=== PATIENT | female | born 1980 | race Caucasian/White ===

== ENCOUNTER 2020-03-28 14:45 | Observation (INO) | payer MEDICAID, SELFPAY ==
[2020-03-28 14:46] VITALS: BP 147/73; PULSE 128; RESP 17; TEMP 35.9; O2SAT 98; BMI 23.6
--- NOTE | 2020-03-28 16:05 | EKG12_ITS ---
Test Reason : Blood Pressure : / mmHG Vent. Rate : 108 BPM Atrial Rate : 108 BPM P-R Int : 144 ms QRS Dur : 092 ms QT Int : 334 ms P-R-T Axes : 025 025 017 degrees QTc Int : 447 ms Sinus tachycardia Otherwise normal ECG Confirmed by MICAELA THOMASON, NAVID ([id number]), industrial editor MARILEE REGALADO ([id number]) on 04/05/2020 11:11:00 A M Referred By: ADRIANA Confirmed By:TJ HINOJOSA MD
--- NOTE | 2020-03-28 16:10 | NURSING ---
NO OLD EKGS
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
--- NOTE | 2020-03-28 17:05 | RAD_ITS ---
STUDY: X-RAY CHEST REASON FOR EXAM: Female, 39 years old. Tachycardia. TECHNIQUE: Single AP portable view of the chest. COMPARISON: None. FINDINGS: There is linear atelectasis at the right lung base. Lungs are otherwise clear. There is no demonstrated pleural abnormality. Normal size heart. Normal mediastinum and surendra. Normal visualized pulmonary arteries. Normal visualized aortic arch and descending thoracic aorta. Normal visualized thoracic spine. Normal visualized ribs, clavicles, and shoulders. There is no demonstrated abnormality of the visualized soft tissue structures of the upper abdomen. RAD/Chest 1 View (Portable) IMPRESSION: Right basilar atelectasis. Electronically Signed: Jerod Boss DO at 17:34 EDT Tel [phone], Service support ,
--- NOTE | 2020-03-28 17:10 | HP.PCM_ITS ---
Problem List (1) Acute opioid withdrawal Status: Acute (2) History of MRSA bacteremia Status: Chronic (3) Herpes zoster virus infection of face and ear nerves Status: Acute (4) Tobacco abuse Status: Chronic (5) Heroin abuse Status: Chronic History of Present Illness Date of Admission: 03/28/20 Chief Complaint: Patient requested admission for acute opioid withdrawal for medical stabilization. The patient is a 39 year old F with past medical history as mentioned above presented to the emergency room requesting admission for acute opioid withdrawal for medical stabilization. Patient has been using heroin both snorting and IV over the last 4 years intermittently. Over the last 2 months, she has been using her 1 almost every day, around half a gram every day and her last use was yesterday. She is admitted using occasional methamphetamines. Her mother was at the bedside that she mentioned that patient has been taking Subutex trying to take herself off the heroin. She has been getting Subutex from the street as well. Her presenting symptoms are generalized body aches and pains that has been going on for last couple of days, associated with anxiety and insomnia and without aggravating or relieving factors. She denied abdominal pain, nausea or vomiting. She denied diarrhea. She denied fever or chills. She denied chest pain or shortness of breath. Patient mentioned that she was admitted to [facility] on August, and she remained in the hospital until November,. Apparently, she was found to have MRSA bacteremia, underwent pericardial window and lung surgery which seemed to be for empyema. At this time, I have no documents for her stay in [facility] beginning of this year. 3 weeks ago, she was diagnosed with shingles of the face, was on valacyclovir which was completed today and she has been on antibiotic eyedrops. She has been following up with [facility] weekly since then. In the emergency department, she was afebrile, tachycardic, blood pressure was stable, pulse ox was 98% on room air. Routine blood work was remarkable for hemoglobin of 11.5, sodium of 133, otherwise normal. LFT revealed slightly elevated liver transaminases and alkaline phosphatase. Troponin was negative. Serum venous test was negative. Urinalysis revealed cloudy urine, positive for leukocyte esterase, there was 10- 25 WBCs and 1+ bacteria. Urine drug screen was positive for benzodiazepines, blood alcohol level was 5. She is being admitted for acute opiate withdrawal for medical stabilization and also found to have acute cystitis. Past Medical History Past Medical History (Chronic Problems): Chronic Problems History of MRSA bacteremia (Chronic) Tobacco abuse (Chronic) Heroin abuse (Chronic) Allergies buspirone [From BuSpar] Allergy (Verified 03/28/20 14:46) Angioedema Home Medications: Ambulatory Orders Medication Instructions Recorded Atb Eye Drops 03/28/20 Erythromycin Ophthalmic [(None)] 1 applic LEFT EYE DAILY 03/28/20 Lorazepam [Ativan] 0.5 mg PO BID PRN PRN 03/28/20 Sertraline HCl [Zoloft] 50 mg PO DAILY 03/28/20 Shingles Med 03/28/20 Surgical History: - - Pericardial window, lung surgery. 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 - *Family History Maternal History Items: No pertinent history Paternal History Items: No pertinent history Review of Systems Constitutional: Reports: Anorexia. Denies: Chills, Fever, Weakness Eyes: Denies: Blurred vision, Double vision, Drainage, Redness HEENT: Denies: Difficulty Hearing, Ear Pain, Eye Pain, Nasal Congestion, Sore Throat Cardiovascular: Denies: Chest Pain, Chest Pressure, Heaviness, Light Headedness, Palpitations, Syncope Respiratory: Reports: Shortness of Breath. Denies: Cough, Hemoptysis, Pleuritic Pain, Sputum production, Wheezing Gastrointestinal: Denies: Abdominal Pain, Constipation, Diarrhea, Nausea, Vomiting Genitourinary: Denies: Dysuria, Frequency, Hematuria Musculoskeletal: Denies: Arm Pain, Back Pain, Foot Pain Skin: Denies: Dryness, Rash Neurological: Denies: Balance problems, Blurred vision, Double vision, Change in Speech, Slurred speech, Confusion, Focal weakness, Incoordination, Numbness Psychiatric: Reports: Anxiety, Depression Endocrine: Denies: Change in Body Habitus, Polydipsia, Polyuria VTE Information - Inpt Only VTE Present on Admission: No VTE Mechan Device Prophylaxis: None VTE Pharm Prophylaxis ordered?: No Patient Problems: Active and Suspected Problems Acute opioid withdrawal (Acute) Herpes zoster virus infection of face and ear nerves (Acute) - Physical Exam Vitals/I&O's: Vital Signs Temp Pulse Resp BP Pulse Ox 96.6 F L 128 H 17 147/73 H 98 03/28/20 14:46 03/28/20 14:46 03/28/20 14:46 03/28/20 14:46 03/28/20 14:46 Oxygen Delivery Method Room Air Weight: 142 lb 3.17 oz Body Mass Index (BMI) 23.6 General: Alert, Oriented x3, Cooperative, No apparent distress HEENT: Atraumatic, PERRLA, EOMI, Normocephalic Oral: Moist Mucosa, No Gingival or Mucosal Lesions/ Ulcerations Neck: Supple, No JVD, Trachea Midline, Thyroid Normal Size and Texture Lungs: Clear to auscultation, No rhonchi, No wheeze, No rales Cardiovascular: Regular rate, Regular Rhythm, Normal S1, Normal S2, PMI Normal, Tachycardic Abdomen: Bowel Sounds Present, Soft, Non Tender, Non-Distended, No Hepato- splenomegaly, Obese Extremities: No clubbing, No cyanosis, No edema Skin: No breakdown, - - Left facial rash, healing vesicles. Lymphatic: No Cervical, Supraclavicular, or Inguinal Adenopathy Neurological: Cranial nerves II-XII grossly intact, Motor Exam 5/5 strength throughout Psych/Mental Status: Normal Affect, Appropriate, Anxious Laboratory Results 03/28/20 16:43: Serum , Qual Pending Laboratory Tests 03/28/20 03/28/20 03/28/20 Range/Units 16:43 16:43 16:43 WBC (4.4-11.0) K/mm3 RBC (4.2-5.4) M/mm3 Hgb (12.0-15.0) g/dL Hct (37-47) % MCV (81-99) fL MCH (27.0-32.0) pg MCHC (32-36) g/dL RDW Std Deviation (35.1-43.9) fl RDW Coeff of Parveen (11.6-14.6) % Plt Count (150-450) K/mm3 MPV (6.2-12.0) fl Immature Gran % (Auto) (0.0-0.9) % Neut % (Auto) (47-70) % Lymph % (Auto) (19-41) % Storey % (Auto) (0-10) % Eos % (Auto) (0-5) % Baso % (Auto) (0-1) % Absolute Neuts (auto) (2.0-7.7) X10^3/uL Absolute Lymphs (auto) (0.83-4.51) X10^3/uL Nucleated RBC % (0-5) % Sodium (136-145) mmol/L Potassium (3.5-5.1) mmol/L Chloride (98-107) mmol/L Carbon Dioxide (21.0-32.0) mmol/L Anion Gap (5-15) BUN (7-18) mg/dL Creatinine (0.55-1.02) mg/dL Estim Creat Clear Calc ml/min Est GFR (MDRD) Af Amer (>60) mL/min Est GFR (MDRD) Non-Af (>60) mL/min BUN/Creatinine Ratio (10-20) RATIO Glucose (74-106) mg/dL Calcium (8.5-10.1) mg/dL Total Bilirubin (0.20-1.00) mg/dL AST (15-37) U/L ALT (13-56) U/L Alkaline Phosphatase (45-117) U/L Troponin I (<0.045) ng/mL Total Protein (6.4-8.2) g/dL Albumin (3.2-5.0) g/dL Globulin (2.2-4.2) g/dL Albumin/Globulin Ratio (0.9-2.4) RATIO Serum , Qual NEGATIVE Negative Urine Color Yellow (Yellow) Urine Clarity Sl Cldy (Clear) Urine pH 5.0 (5.0 - 8.0) Ur Specific Milner 1.015 (1.002-1.030) Urine Protein 15 H (Negative) mg/dl Urine Glucose (UA) Normal (Normal) mg/dl Urine Ketones 5 H (Negative) mg/dl Urine Occult Blood Negative (Negative) /ul Urine Nitrite Negative (Negative) Urine Bilirubin 1 H (Negative) mg/dL Urine Urobilinogen 1 H (Normal) mg/dl Ur Leukocyte Esterase 500 H (Negative) /ul Urine RBC 0 SEEN (0-5) /hpf Urine WBC 10-25 SEEN (0-5) /hpf Ur Squamous Epith Cells 0-5 SEEN (5-10) /hpf Urine Bacteria 1+ (None Seen) /hpf Urine Mucus 0 SEEN (<or=2+) /hpf Urine Opiates Screen NEGATIVE (< 300 ng/mL) Urine Methadone Screen NEGATIVE (< 300 ng/mL) Ur Barbiturates Screen NEGATIVE (< 200 ng/mL) Ur Phencyclidine Scrn NEGATIVE (< 25 ng/mL) Ur Amphetamines Screen NEGATIVE (<1000 ng/mL) U Methamphetamin-MDMA NEGATIVE (< 500 ng/mL) U Benzodiazepines Scrn POSITIVE H (< 200 ng/mL) Urine Cocaine Screen NEGATIVE (< 300 ng/mL) U Cannabinoids Screen NEGATIVE (< 50 ng/mL) Ur Drug Screen Comment Ethyl Alcohol mg/dL 03/28/20 03/28/20 03/28/20 Range/Units 16:43 16:43 16:43 WBC 8.3 (4.4-11.0) K/mm3 RBC 4.62 (4.2-5.4) M/mm3 Hgb 11.5 L (12.0-15.0) g/dL Hct 37.6 (37-47) % MCV 81.4 (81-99) fL MCH 24.9 L (27.0-32.0) pg MCHC 30.6 L (32-36) g/dL RDW Std Deviation 53.6 H (35.1-43.9) fl RDW Coeff of Parveen 19.8 H (11.6-14.6) % Plt Count 240 (150-450) K/mm3 MPV 9.7 (6.2-12.0) fl Immature Gran % (Auto) 0.500 (0.0-0.9) % Neut % (Auto) 88.3 H (47-70) % Lymph % (Auto) 7.1 L (19-41) % Storey % (Auto) 3.3 (0-10) % Eos % (Auto) 0.4 (0-5) % Baso % (Auto) 0.4 (0-1) % Absolute Neuts (auto) 7.3 (2.0-7.7) X10^3/uL Absolute Lymphs (auto) 0.59 L (0.83-4.51) X10^3/uL Nucleated RBC % 0 (0-5) % Sodium 133 L (136-145) mmol/L Potassium 4.0 (3.5-5.1) mmol/L Chloride 102 (98-107) mmol/L Carbon Dioxide 27.0 (21.0-32.0) mmol/L Anion Gap 4 L (5-15) BUN 16 (7-18) mg/dL Creatinine 0.75 (0.55-1.02) mg/dL Estim Creat Clear Calc 89.72 ml/min Est GFR (MDRD) Af Amer 110 (>60) mL/min Est GFR (MDRD) Non-Af 91 (>60) mL/min BUN/Creatinine Ratio 21.4 H (10-20) RATIO Glucose 116 H (74-106) mg/dL Calcium 8.4 L (8.5-10.1) mg/dL Total Bilirubin 0.50 (0.20-1.00) mg/dL AST 47 H (15-37) U/L ALT 74 H (13-56) U/L Alkaline Phosphatase 190 H (45-117) U/L Troponin I < 0.015 (<0.045) ng/mL Total Protein 7.2 (6.4-8.2) g/dL Albumin 3.3 (3.2-5.0) g/dL Globulin 3.9 (2.2-4.2) g/dL Albumin/Globulin Ratio 0.8 L (0.9-2.4) RATIO Serum , Qual Negative Urine Color (Yellow) Urine Clarity (Clear) Urine pH (5.0 - 8.0) Ur Specific Milner (1.002-1.030) Urine Protein (Negative) mg/dl Urine Glucose (UA) (Normal) mg/dl Urine Ketones (Negative) mg/dl Urine Occult Blood (Negative) /ul Urine Nitrite (Negative) Urine Bilirubin (Negative) mg/dL Urine Urobilinogen (Normal) mg/dl Ur Leukocyte Esterase (Negative) /ul Urine RBC (0-5) /hpf Urine WBC (0-5) /hpf Ur Squamous Epith Cells (5-10) /hpf Urine Bacteria (None Seen) /hpf Urine Mucus (<or=2+) /hpf Urine Opiates Screen (< 300 ng/mL) Urine Methadone Screen (< 300 ng/mL) Ur Barbiturates Screen (< 200 ng/mL) Ur Phencyclidine Scrn (< 25 ng/mL) Ur Amphetamines Screen (<1000 ng/mL) U Methamphetamin-MDMA (< 500 ng/mL) U Benzodiazepines Scrn (< 200 ng/mL) Urine Cocaine Screen (< 300 ng/mL) U Cannabinoids Screen (< 50 ng/mL) Ur Drug Screen Comment Ethyl Alcohol 5.0 mg/dL Assessment/Plan All Active Problems Acute opioid withdrawal (Acute) Herpes zoster virus infection of face and ear nerves (Acute) This is a 39 years old female patient presented to the emergency room requesting admission for acute opiate withdrawal for medical stabilization. #1 acute opiate withdrawal: Patient has been snorting and injecting heroin IV as well as intermittent amphetamines. She has been trying to take Subutex from the street to help her get off the heroin. Plan: Admit to [facility] floor, telemetry, initiate opioid withdrawal protocol, tapering Subutex, PRN Catapres, Bentyl, Neurontin, Vistaril, Imodium, methocarbamol, Zofran and trazodone, consult 180 program. #2 Elevated LFT: Unclear etiology, could be related to her recent illness with MRSA bacteremia. She denied any right upper quadrant abdominal pain. Plan to monitor. #3 recent history of facial shingles: Completed 3 weeks of valacyclovir. Currently, she is on antibiotic eyedrops. Continue wound medications updated. #4 recent history of MRSA bacteremia: No documents available. Patient mentioned she had pericardial window and she went for lung surgery for cleaning her lungs. Probably she had empyema. Will obtain records from [facility]. #5 anxiety and depression: Continue Ativan and Zoloft. #6 tobacco abuse: NicoDerm patch. #7 DVT prophylaxis: Low risk patient, no prophylaxis indicated, ambulate. This note was generated with [employer] dictation software. It may contain incorrect words, spelling, and punctuation that were not noted in checking the note before signing. Inpatient E&M: 28535 Init Hosp L2
[2020-03-28 17:11] LABS: Mucous, Urine 0 SEEN /hpf (<or=2+); Red Blood Cells-Urine 0 SEEN /hpf (0-5)
[2020-03-28 17:15] LABS: Glucose, Dipstick Normal (Normal); Ketone-Dipstick 5 mg/dl (Negative); Leukocyte Esterase-Dipstick 500 /ul (Negative); Nitrite-Dipstick Negative (Negative); Occult Blood-Urine Negative /ul (Negative); Protein-Dipstick 15 mg/dl (Negative); Specific Gravity, Urine 1.015 (1.002-1.030); Urine Urobilinogen 1 mg/dl (Normal)
[2020-03-28 17:19] LABS: Color, Urine Yellow (Yellow); Urine Bilirubin Dipstick 1 mg/dL (Negative); Urine Clarity Sl Cldy (Clear)
[2020-03-28 17:20] LABS: Absolute Lymphocyte Count 0.59 X10^3/uL (0.83-4.51); Absolute Neutrophil Count 7.3 X10^3/uL (2.0-7.7); Basophil# 0.03 X10^3/uL; Basophil% 0.4 % (0-1); Eosinophil# 0.03 X10^3/uL; Eosinophils% 0.4 % (0-5); Hematocrit 37.6 % (37-47); Hemoglobin 11.5 g/dL (12.0-15.0); Lymphocyte # 0.59 X10^3/ul (4.0); Lymphocyte % 7.1 % (19-41); Mean Corp Hgb Conc 30.6 g/dL (32-36); Mean Corpuscular Hgb 24.9 pg (27.0-32.0); Mean Corpuscular Volume 81.4 fL (81-99); Mean Platelet Vol. 9.7 fl (6.2-12.0); Monocyte# 0.27 X10^3/uL; Monocyte% 3.3 % (0-10); NRBC Flagged by Analyzer 0 % (0-5); Neutrophil # 7.33 X10^3/uL (2.7-7.7); Neutrophil % 88.3 % (47-70); POSITIVE DIFFERENTIAL YES; Platelet Count 240 K/mm3 (150-450); RBC Distribution Width CV 19.8 % (11.6-14.6); RBC Distribution Width SD 53.6 fl (35.1-43.9); Red Blood Count 4.62 M/mm3 (4.2-5.4); White Blood Count 8.3 K/mm3 (4.4-11.0)
[2020-03-28 17:26] LABS: Differential Indicated SCAN CRITERIA MET
[2020-03-28 17:35] LABS: ALB/GLOB Ratio 0.8 RATIO (0.9-2.4); AST(SGOT) 47 U/L (15-37); Alanine Aminotransfer ALT/SGPT 74 U/L (13-56); Albumin, Serum 3.3 g/dL (3.2-5.0); Alkaline Phosphatase 190 U/L (45-117); Anion Gap 4 (5-15); BUN 16 mg/dL (7-18); BUN/Creat Ratio 21.4 RATIO (10-20); Calcium,Total 8.4 mg/dL (8.5-10.1); Chloride 102 mmol/L (98-107); Creatinine, Serum 0.75 mg/dL (0.55-1.02); EST Glomerular Filtration Rate 91 mL/min (>60); Est Glom Filt Rate - Afr Amer 110 mL/min (>60); Estimated Creatinine Clearance 89.72 ml/min; Globulin 3.9 g/dL (2.2-4.2); Glucose 116 mg/dL (74-106); Protein, Total 7.2 g/dL (6.4-8.2); Sodium Level 133 mmol/L (136-145)
[2020-03-28 17:46] LABS: Amphetamine Urine VISTA NEGATIVE (<1000 ng/mL); Barbiturate Urine VISTA NEGATIVE (< 200 ng/mL); Benzodiazepine Urine VISTA POSITIVE (< 200 ng/mL); Cocaine Urine VISTA NEGATIVE (< 300 ng/mL); Ecstacy Urine VISTA NEGATIVE (< 500 ng/mL); Methadone Urine VISTA NEGATIVE (< 300 ng/mL); PCP Urine VISTA NEGATIVE (< 25 ng/mL); THC Urine VISTA NEGATIVE (< 50 ng/mL); Vista UDS pH Range 6
[2020-03-28 17:50] LABS: Internal QC Validated? YES +Cl - CLEAR BKGD; Pregnancy, Serum, hCG Quali. NEGATIVE Negative
[2020-03-28 17:55] LABS: Bacteria 1+ /hpf (None Seen); Squamous Epithelial Cells - UA 0-5 SEEN /hpf (5-10); White Blood Cells 10-25 SEEN /hpf (0-5)
[2020-03-28 18:07] LABS: Differential Comment SCANNED
--- NOTE | 2020-03-28 18:13 | NURSING ---
MED SURG ACUTE OPIOID WITHDRAWAL FRANK
--- NOTE | 2020-03-28 18:38 | ED.RN ---
THIS NURSE SPOKE WITH THE CHARGE NURSE ON [facility]. INFORMED THAT WE DO NOT HAVE THE ATB AND ARE ASKING THE PHARMACY TO SEND THE ATB TO [facility] FOR ADMINISTRATION. [facility] CHARGE AGREED TO SAME
[2020-03-28 18:41] VITALS: BP 138/77; PULSE 110; RESP 16; TEMP 36.7; O2SAT 98
[2020-03-28 18:46] VITALS: BMI 23.4
[2020-03-28 19:04] VITALS: BP 110/72; PULSE 104; RESP 18; TEMP 36.5; O2SAT 93
[2020-03-28 19:46] VITALS: BMI 23.4
[2020-03-28 20:00] VITALS: PULSE 91
[2020-03-28] MEDS: hydrOXYzine PAM 25 MG Capsule 50 MG PO (20:07)
[2020-03-28] MEDS: Ceftriaxone 1 GM/50 ML BAG IV (20:07)
[2020-03-28] MEDS: 0.9% Saline Lock 10 ML Syringe IV (20:08)
[2020-03-28] MEDS: Buprenorphine HCl 2 MG TAB.SUBL SL (20:09)
[2020-03-28] MEDS: Methocarbamol 750 MG Tablet 1500 MG PO (20:18)
[2020-03-28] MEDS: Ensure Clear 120 ML Liquid PO (22:18)
[2020-03-28 23:16] VITALS: BP 93/60; PULSE 76; RESP 18; TEMP 36.4; O2SAT 99
[2020-03-28] MEDS: LORazepam 0.5 MG Tablet PO (23:27)
[2020-03-28] MEDS: traZODone 100 MG Tablet PO (23:27)
[2020-03-29] VITALS (12 sets, daily range): BP systolic 92–101; BP diastolic 60–70; PULSE 74–98; RESP 16–18; TEMP 36.6–36.9; O2SAT 95–98
[2020-03-29] MEDS: Methocarbamol 750 MG Tablet 1500 MG PO ×3 (04:18→18:36)
[2020-03-29] MEDS: Gabapentin 300 MG Capsule PO ×2 (04:19→16:12)
[2020-03-29] MEDS: Buprenorphine HCl 2 MG TAB.SUBL SL ×3 (04:19→20:22)
[2020-03-29] MEDS: Acetaminophen 500 MG Tablet PO ×2 (04:19→16:17)
[2020-03-29] MEDS: Sertraline 50 MG Tablet PO (08:28)
[2020-03-29] MEDS: LORazepam 0.5 MG Tablet PO ×2 (08:29→22:09)
--- NOTE | 2020-03-29 10:12 | ADDICTION ---
This rewriter met with patient, in her room, to conduct MSE, ASAM, DUDIT assessments and discharge planning. Patient was alert and oriented x4 and presented with depressed mood and flat affect. She appeared to be honest throughout assessment and offered valuable insight to this rewriter about her use history and addiction. She appears appropriate for the 4.0 LOC at this time. She is scheduled for a follow-up appointment with Jw on 04/01/2020 at 12 pm at the [place] office and also 04/10/2020 at 9am at the [place] office where she will engage in individual counseling, IOP and MAT. She states that she is amiable to this plan and is motivated to be an active participant in her recovery. This rewriter will fax all completed assessments to [facility].
--- NOTE | 2020-03-29 11:06 | PCM.PN.HOSP ---
Patient Problems: Active and Suspected Problems Acute opioid withdrawal (Acute) Herpes zoster virus infection of face and ear nerves (Acute) Reason for Visit: opiate wd Subjective: Myalgias. Scalp pain from zoster. Vitals/I&O's: Vital Signs Temp Pulse Resp BP Pulse Ox 36.7 C 91 16 94/60 98 03/29/20 08:00 03/29/20 08:00 03/29/20 08:00 03/29/20 08:00 03/29/20 08:00 Oxygen Delivery Method Room Air Weight: 63.866 kg Body Mass Index (BMI) 23.4 Intake and Output for Last 24 Hours 03/27/20 03/28/20 03/29/20 23:59 23:59 23:59 Intake Total 52.75 / 352.75 773.75 / 773.75 Balance 52.75 / 352.75 773.75 / 773.75 General: Alert, No apparent distress HEENT: Atraumatic, Normocephalic Oral: Moist Mucosa, No Gingival or Mucosal Lesions/ Ulcerations Neck: No Nodes, Thyroid Normal Size and Texture Lungs: Clear to auscultation, Normal air movement, No rhonchi, No wheeze Cardiovascular: Regular rate, Regular Rhythm, Normal S1, Normal S2 Abdomen: Bowel Sounds Present, Soft, Non Tender, Non-Distended Extremities: No edema, No Calf Tenderness Skin: - - healing lesions on left forehead Psych/Mental Status: Normal Affect, Appropriate Laboratory Results 03/28/20 16:43: WBC 8.3, RBC 4.62, Hgb 11.5 L, Hct 37.6, MCV 81.4, MCH 24.9 L, MCHC 30.6 L, RDW Std Deviation 53.6 H, RDW Coeff of Parveen 19.8 H, Plt Count 240, MPV 9.7, Immature Gran % (Auto) 0.500, Neut % (Auto) 88.3 H, Lymph % (Auto) 7.1 L, Newton % (Auto) 3.3, Eos % (Auto) 0.4, Baso % (Auto) 0.4, Absolute Neuts (auto) 7.3, Absolute Lymphs (auto) 0.59 L, Nucleated RBC % 0, Differential Comment SCANNED 03/28/20 16:43: Sodium 133 L, Potassium 4.0, Chloride 102, Carbon Dioxide 27.0, Anion Gap 4 L, BUN 16, Creatinine 0.75, Estim Creat Clear Calc 89.72, Est GFR (MDRD) Af Amer 110, Est GFR (MDRD) Non-Af 91, BUN/Creatinine Ratio 21.4 H, Glucose 116 H, Calcium 8.4 L, Total Bilirubin 0.50, AST 47 H, ALT 74 H, Alkaline Phosphatase 190 H, Troponin I < 0.015, Total Protein 7.2, Albumin 3.3, Globulin 3.9, Albumin/Globulin Ratio 0.8 L 03/28/20 16:43: Ethyl Alcohol 5.0 03/28/20 16:43: Urine Opiates Screen NEGATIVE, Urine Methadone Screen NEGATIVE, Ur Barbiturates Screen NEGATIVE, Ur Phencyclidine Scrn NEGATIVE, Ur Amphetamines Screen NEGATIVE, U Methamphetamin-MDMA NEGATIVE, U Benzodiazepines Scrn POSITIVE H, Urine Cocaine Screen NEGATIVE, U Cannabinoids Screen NEGATIVE, Ur Drug Screen Comment 03/28/20 16:43: Serum , Qual NEGATIVE 03/28/20 16:43: Urine Color Yellow, Urine Clarity Sl Cldy, Urine pH 5.0, Ur Specific [place] 1.015, Urine Protein 15 H, Urine Glucose (UA) Normal, Urine Ketones 5 H, Urine Occult Blood Negative, Urine Nitrite Negative, Urine Bilirubin 1 H, Urine Urobilinogen 1 H, Ur Leukocyte Esterase 500 H, Urine RBC 0 SEEN, Urine WBC 10-25 SEEN, Ur Squamous Epith Cells 0-5 SEEN, Urine Bacteria 1+, Urine Mucus 0 SEEN Current Medications Acetaminophen (Tylenol) 500 mg PO Q4H PRN PRN PRN Reason: Temp > 100.4 F Last Admin: 03/29/20 04:19 Dose: 500 mg Documented by: Al Hydroxide/Mg Hydroxide (Mylanta Ii) 30 ml PO Q6H PRN PRN PRN Reason: dyspesia Buprenorphine HCl (Buprenorphine Hcl) 4 mg SL Q8H SHELLI; Taper Stop: 03/31/20 19:59 Last Admin: 03/29/20 04:19 Dose: 4 mg Documented by: Clonidine (Catapres) 0.1 mg PO Q8H PRN PRN PRN Reason: RESTLESSNESS Dicyclomine HCl (Bentyl) 20 mg PO Q6H PRN PRN PRN Reason: Abdominal Discomfort Gabapentin (Neurontin) 300 mg PO Q8H PRN PRN PRN Reason: moderate to severe anxiety Last Admin: 03/29/20 04:19 Dose: 300 mg Documented by: Hydroxyzine Pamoate (Vistaril Pamoate Capsule) 50 mg PO Q6H PRN PRN PRN Reason: mild anxiety Last Admin: 03/28/20 20:07 Dose: 50 mg Documented by: Ceftriaxone Sodium (Rocephin) 1 gm in 50 mls @ 100 mls/hr IV Q24 SHELLI Sodium Chloride () 250 mls @ 15 mls/hr IV .[id number] PRN PRN Reason: Saline Flush Last Infusion: 03/29/20 02:32 Dose: 0 mls/hr Documented by: Loperamide HCl (Imodium) 2 mg PO Q4H PRN PRN PRN Reason: LOOSE STOOLS Lorazepam (Ativan) 0.5 mg PO BID PRN PRN PRN Reason: ANXIETY Last Admin: 03/29/20 08:29 Dose: 0.5 mg Documented by: Methocarbamol (Methocarbamol) 1,500 mg PO Q6H PRN PRN PRN Reason: MUSCLE SPASM Last Admin: 03/29/20 04:18 Dose: 1,500 mg Documented by: Nicotine (Nicoderm Cq (Pbkc)) 21 mg TRANSDERM. DAILY [facility] Last Admin: 03/29/20 08:28 Dose: 21 mg Documented by: Nutritional Formula (Lactose Free) (Ensure Clear) 120 ml PO 4X/DAY [facility] Last Admin: 03/28/20 22:18 Dose: 120 ml Documented by: Ondansetron HCl (Zofran) 8 mg PO Q8H PRN PRN PRN Reason: NAUSEA Senna (Senokot) 2 tablet PO QHS PRN PRN Reason: Constipation Sertraline HCl (Zoloft) 50 mg PO DAILY [facility] Last Admin: 03/29/20 08:28 Dose: 50 mg Documented by: Sodium Chloride () 10 - 40 ml IV UD PRN PRN Reason: SALINE FLUSH Last Admin: 03/28/20 20:08 Dose: 10 ml Documented by: Trazodone HCl (Desyrel) 100 mg PO QHS PRN PRN PRN Reason: INSOMNIA Last Admin: 03/28/20 23:27 Dose: 100 mg Documented by: STROKE Vital Signs/Narrative: Vital Signs Temp Pulse Resp BP Pulse Ox 03/29/20 08:00 36.7 C 91 16 94/60 98 Medical Necessity - Tobacco Use Smoking Status: Current every day smoker Tobacco Use: Cigarettes Assessment/Plan All Active Problems Acute opioid withdrawal (Acute) Herpes zoster virus infection of face and ear nerves (Acute) 1. Acute opiate withdrawal buprenorphine taper will complete taper on 03/31, but may keep in hospital until the so she can transition to an outpt program upon discharge 2. acute herpes zoster completed valacyclovir on eye drops as she is having blurred vision in her left ear healing overall no evidence of Patel-Simpson 3. VTE prophylaxis: low-risk. Inpatient E&M: 89377 Subs Hosp L2
[2020-03-29] MEDS: 0.9% Saline Lock 10 ML Syringe IV (11:30)
[2020-03-29] MEDS: Ceftriaxone 1 GM/50 ML BAG IV (11:30)
--- NOTE | 2020-03-29 11:30 | CASEMGMT ---
Social Work Note ZACH asked to see if Hospital Van can transport pt to appointment on Wednesday to . Soniya states she will also check with peer support for transport. ZACH updated Soniya that this worker will call to put pt on list for hospital van transport to Wednesday in case it is needed. Soniya states understanding. Natalie Bernal TITLE OFFICER, SENIOR TELECOMMUNICATIONS TECHNICIAN
[2020-03-29] MEDS: cloNIDine HCl 0.1 MG Tablet PO (11:43)
[2020-03-29] MEDS: Dicyclomine 10 MG Capsule 20 MG PO ×2 (11:43→18:36)
[2020-03-29] MEDS: Ensure Clear 120 ML Liquid PO ×4 (11:44→22:09)
[2020-03-29] MEDS: DiphenhydrAMINE 25 MG Capsule 50 MG PO ×2 (12:12→20:22)
--- NOTE | 2020-03-29 12:45 | CASEMGMT ---
Addendum entered by Natalie Bernal 03/29/20 14:44: ZACH placed a call to Aleksandra at [facility] and updated her that transportation has been arranged. Aleksandra states she found peer support person Jennifer who will transport pt Wednesday at 12:00pm to [facility]. ZACH placed a call to Cat to cancel transportation. Original Note: Social Work Note SW placed a call to Cat in [employer] for hospital van transportation. Cat states she can have the hospital van transport pt on Wednesday at 11:00am to [facility]. Natalie Bernal PRIMARY THERAPIST, PIPE ROLLER
[2020-03-29] MEDS: Ondansetron 8 MG Tablet PO (18:23)
[2020-03-29] MEDS: hydrOXYzine PAM 25 MG Capsule 50 MG PO (18:36)
[2020-03-29] MEDS: Ketorolac 15 MG/ML Vial IV (19:16)
[2020-03-29] MEDS: prednisoLONE eye drops (5 mL) 1 DROP OPTH.BTL 1 DRP LEFT EYE (22:09)
[2020-03-29] MEDS: traZODone 100 MG Tablet PO (22:09)
[2020-03-29] MEDS: Erythromycin Base 1 OPTH.TUBE 1 APPLIC LEFT EYE (22:10)
[2020-03-30] VITALS (10 sets, daily range): BP systolic 94–114; BP diastolic 58–72; PULSE 71–109; RESP 16–18; TEMP 36.5–36.9; O2SAT 95–96
[2020-03-30] MEDS: Loratadine 10 MG Tablet PO ×2 (00:15→09:30)
[2020-03-30] MEDS: Buprenorphine HCl 2 MG TAB.SUBL SL ×3 (03:32→20:27)
[2020-03-30] MEDS: Acetaminophen 500 MG Tablet PO (06:24)
[2020-03-30] MEDS: Ketorolac 15 MG/ML Vial IV ×3 (07:39→19:23)
[2020-03-30] MEDS: DiphenhydrAMINE 25 MG Capsule 50 MG PO ×2 (09:16→17:44)
[2020-03-30] MEDS: Ensure Clear 120 ML Liquid PO ×4 (09:16→21:31)
[2020-03-30] MEDS: Sertraline 50 MG Tablet PO (09:17)
[2020-03-30] MEDS: prednisoLONE eye drops (5 mL) 1 DROP OPTH.BTL 1 DRP LEFT EYE ×4 (09:20→21:31)
[2020-03-30] MEDS: Ceftriaxone 1 GM/50 ML BAG IV (09:28)
[2020-03-30] MEDS: Methocarbamol 750 MG Tablet 1500 MG PO ×3 (09:29→23:20)
[2020-03-30] MEDS: Dicyclomine 10 MG Capsule 20 MG PO ×2 (09:30→15:56)
[2020-03-30] MEDS: Gabapentin 300 MG Capsule PO (09:30)
[2020-03-30] MEDS: cloNIDine HCl 0.1 MG Tablet PO ×2 (09:30→21:37)
--- NOTE | 2020-03-30 12:11 | PN_ITS ---
Patient Problems: Active and Suspected Problems Acute opioid withdrawal (Acute) Herpes zoster virus infection of face and ear nerves (Acute) Reason for Visit: Opiate withdrawal Subjective: Complains of a left-sided headache. Complains of pruritus around where her shingles is on her face as well as in her scalp. Vitals/I&O's: Vital Signs Temp Pulse Resp BP Pulse Ox 36.5 C L 75 18 101/58 L 95 03/30/20 09:15 03/30/20 10:54 03/30/20 09:15 03/30/20 09:15 03/30/20 09:15 Oxygen Delivery Method Room Air Weight: 63.866 kg Body Mass Index (BMI) 23.4 Intake and Output for Last 24 Hours 03/28/20 03/29/20 03/30/20 23:59 23:59 23:59 Intake Total 52.75 / 352.75 1634.25 / 1634.25 700 / 700 Balance 52.75 / 352.75 1634.25 / 1634.25 700 / 700 General: Alert, No apparent distress HEENT: Atraumatic Oral: Moist Mucosa, No Gingival or Mucosal Lesions/ Ulcerations Neck: No Nodes, Thyroid Normal Size and Texture Lungs: Clear to auscultation, Normal air movement, No rhonchi, No wheeze, No rales Cardiovascular: Regular rate, Regular Rhythm, Normal S1, Normal S2 Abdomen: Bowel Sounds Present, Soft, Non Tender, Non-Distended Skin: - - Healed forehead zoster. No erythema. Microbiology Past 72 Hours 03/28/20 16:43 Urine, Clean Catch Urine Culture - Final Serratia marcescens Current Medications Acetaminophen (Tylenol) 500 mg PO Q4H PRN PRN PRN Reason: Temp > 100.4 F Last Admin: 03/30/20 06:24 Dose: 500 mg Documented by: Al Hydroxide/Mg Hydroxide (Mylanta Ii) 30 ml PO Q6H PRN PRN PRN Reason: dyspesia Buprenorphine HCl (Buprenorphine Hcl) 2 mg SL Q8H SHELLI; Taper Stop: 03/31/20 19:59 Last Admin: 03/30/20 12:02 Dose: 2 mg Documented by: Clonidine (Catapres) 0.1 mg PO Q8H PRN PRN PRN Reason: RESTLESSNESS Last Admin: 03/30/20 09:30 Dose: 0.1 mg Documented by: Dexamethasone Sodium Phosphate (Decadron) 10 mg IV X1 ONE Stop: 03/30/20 12:12 Dicyclomine HCl (Bentyl) 20 mg PO Q6H PRN PRN PRN Reason: Abdominal Discomfort Last Admin: 03/30/20 09:30 Dose: 20 mg Documented by: Diphenhydramine HCl (Benadryl) 50 mg PO Q8H PRN PRN Reason: ITCHING Last Admin: 03/30/20 09:16 Dose: 50 mg Documented by: Erythromycin () 1 applic LEFT EYE QHS [facility] Last Admin: 03/29/20 22:10 Dose: 1 applicatio Documented by: Gabapentin (Neurontin) 300 mg PO Q8H PRN PRN PRN Reason: moderate to severe anxiety Last Admin: 03/30/20 09:30 Dose: 300 mg Documented by: Hydroxyzine Pamoate (Vistaril Pamoate Capsule) 50 mg PO Q6H PRN PRN PRN Reason: mild anxiety Last Admin: 03/29/20 18:36 Dose: 50 mg Documented by: Ceftriaxone Sodium (Rocephin) 1 gm in 50 mls @ 100 mls/hr IV Q24 [facility] Last Admin: 03/30/20 09:28 Dose: 50 mls/hr Documented by: Sodium Chloride () 250 mls @ 15 mls/hr IV .[id number] PRN PRN Reason: Saline Flush Last Infusion: 03/29/20 15:37 Dose: 0 mls/hr Documented by: Ketorolac Tromethamine (Toradol (Bkc)) 15 mg IV Q6H PRN PRN Reason: Pain Score 1-10/10 Stop: 04/03/20 19:39 Last Admin: 03/30/20 07:39 Dose: 15 mg Documented by: Loperamide HCl (Imodium) 2 mg PO Q4H PRN PRN PRN Reason: LOOSE STOOLS Loratadine (Claritin) 10 mg PO DAILY [facility] Last Admin: 03/30/20 09:30 Dose: 10 mg Documented by: Lorazepam (Ativan) 0.5 mg PO BID PRN PRN PRN Reason: ANXIETY Last Admin: 03/29/20 22:09 Dose: 0.5 mg Documented by: Methocarbamol (Methocarbamol) 1,500 mg PO Q6H PRN PRN PRN Reason: MUSCLE SPASM Last Admin: 03/30/20 09:29 Dose: 1,500 mg Documented by: Nicotine (Nicoderm Cq (Pbkc)) 21 mg TRANSDERM. DAILY [facility] Last Admin: 03/30/20 09:17 Dose: 21 mg Documented by: Nutritional Formula (Lactose Free) (Ensure Clear) 120 ml PO 4X/DAY [facility] Last Admin: 03/30/20 09:16 Dose: 120 ml Documented by: Ondansetron HCl (Zofran) 8 mg PO Q8H PRN PRN PRN Reason: NAUSEA Last Admin: 03/29/20 18:23 Dose: 8 mg Documented by: Prednisolone Acetate (Pred Forte Eye Drops (5 Ml)) 1 drop LEFT EYE 4X/DAY [facility] Last Admin: 03/30/20 09:20 Dose: 1 drop Documented by: Senna (Senokot) 2 tablet PO QHS PRN PRN Reason: Constipation Sertraline HCl (Zoloft) 50 mg PO DAILY [facility] Last Admin: 03/30/20 09:17 Dose: 50 mg Documented by: Sodium Chloride () 10 - 40 ml IV UD PRN PRN Reason: SALINE FLUSH Last Admin: 03/29/20 11:30 Dose: 10 ml Documented by: Trazodone HCl (Desyrel) 100 mg PO QHS PRN PRN PRN Reason: INSOMNIA Last Admin: 03/29/20 22:09 Dose: 100 mg Documented by: STROKE Vital Signs/Narrative: Vital Signs Temp Pulse Resp BP Pulse Ox 03/30/20 10:54 75 03/30/20 09:15 36.5 C L 71 18 101/58 L 95 Medical Necessity - Tobacco Use Smoking Status: Current every day smoker Tobacco Use: Cigarettes Assessment/Plan All Active Problems Acute opioid withdrawal (Acute) Herpes zoster virus infection of face and ear nerves (Acute) 1. Acute opiate withdrawal * buprenorphine taper * will complete taper on 03/31, but may keep in hospital until the so she can transition to an outpt program upon discharge 2. acute herpes zoster * completed valacyclovir * on eye drops as she is having blurred vision in her left eye. Patient states that she has been following with a compress engineer who is aware and having her on eyedrops. * healing overall * no evidence of Patel-Simpson 3. Migraine * And will feel this is directly related with her herpes zoster though it is on the same side in location. * We will give the patient a one-time dose of 10 mg of IV Decadron which would hopefully help with her migraine. Patient has not been having relief with the ketorolac. Told patient that may help with her pruritus as well. 4. VTE prophylaxis: low-risk. Inpatient E&M: 91570 Subs Hosp L2
[2020-03-30] MEDS: dexAMETHasone 10 MG/ML Vial IV (13:26)
[2020-03-30] MEDS: LORazepam 0.5 MG Tablet PO ×2 (15:59→23:20)
[2020-03-30] MEDS: Mineral Oil/Petrolatum Cr 1.75oz Bottle 1 APPLIC TOPICAL (20:28)
[2020-03-30] MEDS: Erythromycin Base 1 OPTH.TUBE 1 APPLIC LEFT EYE (21:31)
[2020-03-30] MEDS: traZODone 100 MG Tablet PO (21:32)
[2020-03-31] VITALS (8 sets, daily range): BP systolic 104–115; BP diastolic 56–82; PULSE 70–85; RESP 16–18; TEMP 36.5–36.9; O2SAT 93–98
[2020-03-31] MEDS: Gabapentin 300 MG Capsule PO ×2 (01:07→13:24)
[2020-03-31] MEDS: Buprenorphine HCl 2 MG TAB.SUBL SL (08:29)
[2020-03-31] MEDS: Loratadine 10 MG Tablet PO (09:42)
[2020-03-31] MEDS: Ceftriaxone 1 GM/50 ML BAG IV (09:42)
[2020-03-31] MEDS: Sertraline 50 MG Tablet PO (09:42)
[2020-03-31] MEDS: prednisoLONE eye drops (5 mL) 1 DROP OPTH.BTL 1 DRP LEFT EYE ×4 (09:43→21:45)
[2020-03-31] MEDS: Methocarbamol 750 MG Tablet 1500 MG PO ×2 (09:43→18:06)
[2020-03-31] MEDS: hydrOXYzine PAM 25 MG Capsule 50 MG PO ×2 (09:43→18:06)
[2020-03-31] MEDS: Ensure Clear 120 ML Liquid PO ×4 (09:43→21:48)
--- NOTE | 2020-03-31 10:06 | PN_ITS ---
Patient Problems: Active and Suspected Problems Acute opioid withdrawal (Acute) Herpes zoster virus infection of face and ear nerves (Acute) Reason for Visit: opiate withdrawal Subjective: Headache improved. Still with pruritis involving forehead and scalp. Improved vision in left eye. Vitals/I&O's: Vital Signs Temp Pulse Resp BP Pulse Ox 36.5 C L 74 18 115/82 H 98 03/31/20 08:45 03/31/20 08:45 03/31/20 08:45 03/31/20 08:45 03/31/20 08:45 Oxygen Delivery Method Room Air Weight: 63.866 kg Body Mass Index (BMI) 23.4 Intake and Output for Last 24 Hours 03/29/20 03/30/20 03/31/20 23:59 23:59 23:59 Intake Total 1634.25 / 1634.25 2183.75 / 2183.75 300 / 300 Balance 1634.25 / 1634.25 2183.75 / 2183.75 300 / 300 General: Alert, No apparent distress HEENT: Atraumatic, Normocephalic, - - slight ptosis left eyelid, able to shut eyes tightly Oral: Moist Mucosa, No Gingival or Mucosal Lesions/ Ulcerations Neck: No Nodes, Thyroid Normal Size and Texture Lungs: Clear to auscultation, Normal air movement, No rhonchi, No wheeze Cardiovascular: Regular rate, Regular Rhythm, Normal S1, Normal S2 Abdomen: Bowel Sounds Present, Soft, Non Tender, Non-Distended Extremities: No edema, No Calf Tenderness Skin: - - healing wounds involving forehead. Musculoskeletal: No Tenderness to Palpation of Joints or Extremities, No Muscle Wasting Psych/Mental Status: Normal Affect, Appropriate Microbiology Past 72 Hours 03/28/20 16:43 Urine, Clean Catch Urine Culture - Final Serratia marcescens Current Medications Acetaminophen (Tylenol) 500 mg PO Q4H PRN PRN PRN Reason: Temp > 100.4 F Last Admin: 03/30/20 06:24 Dose: 500 mg Documented by: Al Hydroxide/Mg Hydroxide (Mylanta Ii) 30 ml PO Q6H PRN PRN PRN Reason: dyspesia Buprenorphine HCl (Buprenorphine Hcl) 2 mg SL Q12H SHELLI; Taper Stop: 03/31/20 19:59 Last Admin: 03/31/20 08:29 Dose: 2 mg Documented by: Clonidine (Catapres) 0.1 mg PO Q8H PRN PRN PRN Reason: RESTLESSNESS Last Admin: 03/30/20 21:37 Dose: 0.1 mg Documented by: Dicyclomine HCl (Bentyl) 20 mg PO Q6H PRN PRN PRN Reason: Abdominal Discomfort Last Admin: 03/30/20 15:56 Dose: 20 mg Documented by: Diphenhydramine HCl (Benadryl) 50 mg PO Q8H PRN PRN Reason: ITCHING Last Admin: 03/30/20 17:44 Dose: 50 mg Documented by: Erythromycin () 1 applic LEFT EYE QHS [facility] Last Admin: 03/30/20 21:31 Dose: 1 applicatio Documented by: Gabapentin (Neurontin) 300 mg PO Q8H PRN PRN PRN Reason: moderate to severe anxiety Last Admin: 03/31/20 01:07 Dose: 300 mg Documented by: Hydroxyzine Pamoate (Vistaril Pamoate Capsule) 50 mg PO Q6H PRN PRN PRN Reason: mild anxiety Last Admin: 03/31/20 09:43 Dose: 50 mg Documented by: Ceftriaxone Sodium (Rocephin) 1 gm in 50 mls @ 100 mls/hr IV Q24 [facility] Last Admin: 03/31/20 09:42 Dose: 100 mls/hr Documented by: Sodium Chloride () 250 mls @ 15 mls/hr IV .[id number] PRN PRN Reason: Saline Flush Last Infusion: 03/30/20 12:45 Dose: 0 mls/hr Documented by: Ketorolac Tromethamine (Toradol (Bkc)) 15 mg IV Q6H PRN PRN Reason: Pain Score 1-10/10 Stop: 04/03/20 19:39 Last Admin: 03/30/20 19:23 Dose: 15 mg Documented by: Loperamide HCl (Imodium) 2 mg PO Q4H PRN PRN PRN Reason: LOOSE STOOLS Loratadine (Claritin) 10 mg PO DAILY [facility] Last Admin: 03/31/20 09:42 Dose: 10 mg Documented by: Lorazepam (Ativan) 0.5 mg PO BID PRN PRN PRN Reason: ANXIETY Last Admin: 03/30/20 23:20 Dose: 0.5 mg Documented by: Methocarbamol (Methocarbamol) 1,500 mg PO Q6H PRN PRN PRN Reason: MUSCLE SPASM Last Admin: 03/31/20 09:43 Dose: 1,500 mg Documented by: Multi-Ingredient Ointment (Aquaphor) 1 applic TOPICAL 4X/DAY PRN PRN; Protocol PRN Reason: ITCHING Last Admin: 03/30/20 20:28 Dose: 1 applicatio Documented by: Nicotine (Nicoderm Cq (Pbkc)) 21 mg TRANSDERM. DAILY [facility] Last Admin: 03/31/20 09:43 Dose: 21 mg Documented by: Nutritional Formula (Lactose Free) (Ensure Clear) 120 ml PO 4X/DAY [facility] Last Admin: 03/31/20 09:43 Dose: 120 ml Documented by: Ondansetron HCl (Zofran) 8 mg PO Q8H PRN PRN PRN Reason: NAUSEA Last Admin: 03/29/20 18:23 Dose: 8 mg Documented by: Prednisolone Acetate (Pred Forte Eye Drops (5 Ml)) 1 drop LEFT EYE 4X/DAY [facility] Last Admin: 03/31/20 09:43 Dose: 1 drop Documented by: Senna (Senokot) 2 tablet PO QHS PRN PRN Reason: Constipation Sertraline HCl (Zoloft) 50 mg PO DAILY [facility] Last Admin: 03/31/20 09:42 Dose: 50 mg Documented by: Sodium Chloride () 10 - 40 ml IV UD PRN PRN Reason: SALINE FLUSH Last Admin: 03/29/20 11:30 Dose: 10 ml Documented by: Trazodone HCl (Desyrel) 100 mg PO QHS PRN PRN PRN Reason: INSOMNIA Last Admin: 03/30/20 21:32 Dose: 100 mg Documented by: STROKE Vital Signs/Narrative: Vital Signs Temp Pulse Resp BP Pulse Ox 03/31/20 08:45 36.5 C L 74 18 115/82 H 98 Medical Necessity - Tobacco Use Smoking Status: Current every day smoker Tobacco Use: Cigarettes Assessment/Plan All Active Problems Acute opioid withdrawal (Acute) Herpes zoster virus infection of face and ear nerves (Acute) 1. Acute opiate withdrawal * buprenorphine taper * will complete taper on 03/31, but may keep in hospital until the so she can transition to an outpt program upon discharge 2. acute herpes zoster * completed valacyclovir * on eye drops as she is having blurred vision in her left eye. Patient states that she has been following with a ditch worker who is aware and having her on eyedrops. * healing overall * no evidence of Patel-Simpson * involved left eye. continue with eye drops. 3. Migraine * improved with decadron * We will give the patient a one-time dose of 10 mg of IV Decadron which would hopefully help with her migraine. Patient has not been having relief with the ketorolac. Told patient that may help with her pruritus as well. 4. VTE prophylaxis: low-risk. Inpatient E&M: [id number] Subs Hosp L2
[2020-03-31] MEDS: LORazepam 0.5 MG Tablet PO ×2 (11:53→21:44)
[2020-03-31] MEDS: DiphenhydrAMINE 25 MG Capsule 50 MG PO ×2 (13:24→21:44)
[2020-03-31] MEDS: cloNIDine HCl 0.1 MG Tablet PO ×2 (13:24→21:44)
[2020-03-31] MEDS: traZODone 100 MG Tablet PO (21:44)
[2020-03-31] MEDS: Erythromycin Base 1 OPTH.TUBE 1 APPLIC LEFT EYE (21:45)
[2020-04-01 03:37] VITALS: BP 96/64; PULSE 68; RESP 16; TEMP 37; O2SAT 97
[2020-04-01] MEDS: DiphenhydrAMINE 25 MG Capsule 50 MG PO (08:20)
[2020-04-01] MEDS: cloNIDine HCl 0.1 MG Tablet PO (08:20)
[2020-04-01 08:21] VITALS: BP 110/69; PULSE 80; RESP 18; TEMP 36.6; O2SAT 98
--- NOTE | 2020-04-01 09:53 | DCINST_ITS ---
- Discharge Diagnoses Current Active Problems: Current Active and Chronic Problems Acute opioid withdrawal (Acute) History of MRSA bacteremia (Chronic) Herpes zoster virus infection of face and ear nerves (Acute) Tobacco abuse (Chronic) Heroin abuse (Chronic) You will use the following diet at home:: No restrictions Your food should be the consistency of: Regular Your liquids should be the consistency of: Regular/Thin Discharge Activity: Return to Normal Activity Weight Bearing Status: Full weight bearing Allergies/Adverse Reactions: Allergies buspirone [From BuSpar] Allergy (Verified 03/28/20 14:46) Angioedema Medications to take at Discharge Atb Eye Drops 03/28/20 Erythromycin Ophthalmic 1 applic LEFT EYE QHS 03/28/20 Lorazepam [Ativan] 0.5 mg PO BID PRN PRN 03/28/20 Sertraline HCl [Zoloft] 50 mg PO DAILY 03/28/20 Prednisolone Acetate/Pf [Prednisolone Acet 1% Eye Drop] 1 drp LEFT EYE 4X/DAY 03/29/20 Valacyclovir HCl [Valacyclovir] 1,000 mg PO TID 03/29/20 Ciprofloxacin [Cipro] 500 mg PO BID #8 tab 04/01/20 traZODone [Desyrel] 100 mg PO QHS PRN PRN #30 tab 04/01/20 The following prescriptions were given: Ciprofloxacin [Cipro] 500 mg PO BID #8 tab [id number] traZODone [Desyrel] 100 mg PO QHS PRN PRN #30 tab PRN Reason: Insomnia [id number] Primary Care Physician: [facility] Doctor,Out of [NON-STAFF] - Test Results: Test results from this visit will be discussed in further detail at your follow- up appointment, if applicable. Please Follow Up With: with 180
[2020-04-01] MEDS: prednisoLONE eye drops (5 mL) 1 DROP OPTH.BTL 1 DRP LEFT EYE (10:00)
[2020-04-01] MEDS: Ensure Clear 120 ML Liquid PO (10:00)
[2020-04-01] MEDS: Sertraline 50 MG Tablet PO (10:00)
[2020-04-01] MEDS: Loratadine 10 MG Tablet PO (10:00)
--- NOTE | 2020-04-01 10:46 | PHA.DC.MR ---
Pharmacy Service has performed discharge medication reconciliation for this patient. The patient's discharge medication list was reviewed for discrepancies and discrepancies were resolved. Home Medications Atb Eye Drops 03/28/20 Erythromycin Ophthalmic 1 applic LEFT EYE QHS 03/28/20 Lorazepam [Ativan] 0.5 mg PO BID PRN PRN 03/28/20 Sertraline HCl [Zoloft] 50 mg PO DAILY 03/28/20 Prednisolone Acetate/Pf [Prednisolone Acet 1% Eye Drop] 1 drp LEFT EYE 4X/DAY 03/29/20 Valacyclovir HCl [Valacyclovir] 1,000 mg PO TID 03/29/20 Ciprofloxacin [Cipro] 500 mg PO BID #8 tab 04/01/20 traZODone [Desyrel] 100 mg PO QHS PRN PRN #30 tab 04/01/20
[2020-04-01] MEDS: LORazepam 0.5 MG Tablet PO (11:31)
--- NOTE | 2020-04-01 16:50 | PCM.DC.SUM ---
Discharge Date and Diagnosis Date of Admission: 03/28/20 Date of Discharge: 04/01/20 - Primary Discharge Diagnosis Acute Problems: #1 acute opiate withdrawal #2 chronic opioid addiction-heroin #3 conjunctivitis left eye from herpes zoster-present on admission #4 acute cystitis secondary to Serratia marcescens - Secondary Discharge Diagnosis Chronic Problems: Chronic Problems History of MRSA bacteremia (Chronic) Tobacco abuse (Chronic) Heroin abuse (Chronic) Hospital Course and Treatment Operations: None Procedures: None Summary of Care Provided: The patient is a 39 year old F seen in the emergency room at [facility] with a request for acute detox services for heroin withdrawal. Labs were obtained in the emergency room-toxicology screen was positive for benzodiazepines, urinalysis showed 10-25 white blood cells in the urine, there is +1 bacteria noted to be present. Remainder the patient's ER labs were unremarkable. Patient was admitted to [place] [id number], orders were entered using the opiate withdrawal order set, patient was treated for acute cystitis, she had no untoward events during her hospital stay. On 04/01/2020, patient was seen and examined: On examination she appeared in good health and spirits, she does not appear to be in any distress. Vital signs as documented. Skin warm and dry and without overt rashes. Neck without JVD, thyroid appears normal, trachea is midline, neck is supple. Lungs clear, normal air movement was noted. Heart exam notable for regular rhythm, normal sounds and absence of murmurs, rubs or gallops. Abdomen unremarkable and without evidence of organomegaly, masses, or abdominal aortic enlargement, bowel sounds are present in all 4 quadrants, no abdominal tenderness was noted. Extremities nonedematous, no cyanosis was noted, no clubbing was noted. Neuro: Cranial nerves II through XII are grossly intact, no focal motor deficits were noted, sensation to light touch and pinprick is intact, motor exam 5/5 throughout. Psych: Patient is alert and oriented x3, she does not appear anxious or depressed, she does not appear agitated. On 04/01/2020, patient was seen and examined and felt to be stable for discharge home - Physical Exam Vitals/I&O's: Vital Signs Temp Pulse Resp BP Pulse Ox 97.9 F 80 18 110/69 98 04/01/20 08:21 04/01/20 08:21 04/01/20 08:21 04/01/20 08:21 04/01/20 08:21 Oxygen Delivery Method Room Air Weight: 63.866 kg Body Mass Index (BMI) 23.4 Intake and Output for Last 24 Hours 03/30/20 03/31/20 04/01/20 23:59 23:59 23:59 Intake Total 2183.75 / 2183.75 2910 / 2910 500 / 500 Balance 2183.75 / 2183.75 2910 / 2910 500 / 500 Microbiology Past 72 Hours 03/28/20 16:43 Urine, Clean Catch Urine Culture - Final Serratia marcescens Discharge Activity: Return to Normal Activity Weight Bearing Status: Full weight bearing Home Medications: Medications to take at Discharge Atb Eye Drops 03/28/20 Erythromycin Ophthalmic 1 applic LEFT EYE QHS 03/28/20 Lorazepam [Ativan] 0.5 mg PO BID PRN PRN 03/28/20 Sertraline HCl [Zoloft] 50 mg PO DAILY 03/28/20 Prednisolone Acetate/Pf [Prednisolone Acet 1% Eye Drop] 1 drp LEFT EYE 4X/DAY 03/29/20 Valacyclovir HCl [Valacyclovir] 1,000 mg PO TID 03/29/20 Ciprofloxacin [Cipro] 500 mg PO BID #8 tab 04/01/20 traZODone [Desyrel] 100 mg PO QHS PRN PRN #30 tab 04/01/20 Following Prescriptions Were Given to Patient: Ciprofloxacin [Cipro] 500 mg PO BID #8 tab Transmission Status: Received by [id number] traZODone [Desyrel] 100 mg PO QHS PRN PRN #30 tab PRN Reason: Insomnia Transmission Status: Received by [id number] Primary Care Physician: [facility] Doctor,Out of [NON-STAFF] - Please Follow Up With: with 180 Disposition: Home Minutes spent on discharge:: 31 Patient Condition:: Stable Medical Necessity - Tobacco Use Smoking Status: Current every day smoker Tobacco Use: Cigarettes Meaningful Use Info Meaningful Use Diagnoses (Choose all that apply): None applicable Inpatient E&M: 92336 Disch Hosp
== END 2020-04-01 12:15 | disposition home or self-care (01) ==
LOC: ED 18:11 → MS3 03-29 06:24
PROVIDERS: Emergency Medicine; Admitting Provider Hospitalist; Emergency Provider Emergency Medicine; PCP Student in an Organized Health Care Education/Training Program; Visit Provider Internal Medicine
DX: F11.23 Opioid dependence with withdrawal (principal); N30.00 Acute cystitis without hematuria; B02.31 Zoster conjunctivitis; F17.210 Nicotine dependence, cigarettes, uncomplicated; F15.90 Other stimulant use, unspecified, uncomplicated; Z79.899 Other long term (current) drug therapy; Z86.14 Personal history of Methicillin resistant Staphylococcus aureus infection; F41.9 Anxiety disorder, unspecified; F32.9 Major depressive disorder, single episode, unspecified; G43.909 Migraine, unspecified, not intractable, without status migrainosus
CPT/HCPCS: 71045; 80053; 80307; 80320; 81001; 84484; 84703; 85025; 87077; 87086; 87088; 87186; 93005; 97802; 99284; 99406; H0012; J7050; A4216; G0480